=== PATIENT | male | born 1960 | race Caucasian/White ===

== ENCOUNTER 2020-12-15 00:13 | Inpatient (IN) | payer BC ==
[~2020-12-15] VITALS: Ht 172.7 cm; Wt 78.9 kg
[2020-12-15] MEDS ORDERED: SODIUM CHLORIDE 0.9% 1,000 ML IV ONE (00:45)
[2020-12-15] MEDS ORDERED: LORAZEPAM 2MG/ML CPJ IV ONE ×2 (00:45→02:45)
[2020-12-15 00:55] LABS: HEMATOCRIT. 39.2 % (42.0-52.0); HEMOGLOBIN. 13.6 g/dL (14.0-18.0); MEAN CORPUSCULAR HEMOGLOBIN 35.9 pg (28.0-32.0); MEAN CORPUSCULAR VOLUME 103.2 fL (80.0-94.0); PLATELET 88 x1000/uL (130-400); RED CELL DISTRIBUTION WIDTH 14.1 % (11.6-14.6)
[2020-12-15 01:01] LABS: CHLORIDE 98 mEq/L (98-107)
[2020-12-15 01:06] LABS: ETHANOL BLOOD < 10 mg/dL
[2020-12-15 02:45] LABS: *AMPHETAMINES SCREEN URINE NEGATIVE (NEGATIVE); *BARBITURATES SCREEN URINE NEGATIVE (NEGATIVE); *BENZODIAZEPINES SCREEN URINE NEGATIVE (NEGATIVE); METHADONE URINE SCREEN NEGATIVE (NEGATIVE); OPIATES URINE SCREEN NEGATIVE (NEGATIVE)
[2020-12-15] MEDS ORDERED: FOLIC ACID 1 MG, THIAMINE HCL 100 MG, MVI, ADULT NO.1 10 ML in DEXTROSE 5% WATER 1,000 ML IV ONE (02:45)
[2020-12-15 02:46] LABS: CANNABINOID URINE SCREEN NEGATIVE (NEGATIVE); PHENCYCLIDINE URINE SCREEN NEGATIVE (NEGATIVE)
[2020-12-15] MEDS ORDERED: HYDRALAZINE 20MG/ML VIAL IV ONE (05:00)
[2020-12-15 05:17] LABS: *COCAINE SCREEN URINE NEGATIVE (NEGATIVE)
[2020-12-15 05:38] LABS: PLATELET ESTIMATE DECREASED
[2020-12-15] MEDS ORDERED: ONDANSETRON HCL 4MG/2ML INJ IV PRN (07:15)
[2020-12-15] MEDS: SODIUM CHLORIDE 0.9% 1,000 ML IV SCH ×2 (07:40→23:42)
[2020-12-15] MEDS: FOLIC ACID 1MG TABLET PO SCH (08:39)
[2020-12-15] MEDS: THIAMINE HCL 100MG TABLET PO SCH (08:39)
[2020-12-15 10:00] VITALS: BP 162/90
[2020-12-15 12:00] VITALS: BP 155/102
[2020-12-15] MEDS: AMLODIPINE 10MG TABLET PO SCH (13:45)
[2020-12-15] MEDS ORDERED: CHLORDIAZEPOXIDE 25MG CAPSULE PO SCH (14:00)
[2020-12-15 16:00] VITALS: BP 166/83
[2020-12-15] MEDS: CLONIDINE 0.1MG TABLET PO PRN ×2 (17:09→22:13)
[2020-12-15 21:00] VITALS: BP 158/89
[2020-12-15] MEDS: ACETAMINOPHEN 650MG/20.3ML UDC PO PRN (22:13)
[2020-12-15] MEDS: CHLORDIAZEPOXIDE 5 MG CAPSULE PO SCH (22:18)
[2020-12-16] VITALS: BP 134/91
[2020-12-16 04:00] VITALS: BP 133/83
[2020-12-16] MEDS: CHLORDIAZEPOXIDE 5 MG CAPSULE PO SCH ×2 (05:20→12:23)
[2020-12-16 06:20] LABS: BASOPHILS % 0.3 % (0.0-2.0); EOSINOPHILS % 1.2 % (0.0-5.0); HEMATOCRIT. 37.6 % (42.0-52.0); HEMOGLOBIN. 13.1 g/dL (14.0-18.0); LYMPHOCYTES % 26.8 % (20.0-50.0); MEAN CORPUSCULAR HEMOGLOBIN 36.4 pg (28.0-32.0); MEAN CORPUSCULAR VOLUME 104.8 fL (80.0-94.0); MEAN PLATELET VOLUME 8.5 fl (7.4-10.4); MONOCYTES % 14.3 % (2.0-8.0); NEUTROPHILS % 57.4 % (40.0-76.0); PLATELET 78 x1000/uL (130-400); RED BLOOD CELL COUNT 3.59 mill/uL (4.7-6.1); RED CELL DISTRIBUTION WIDTH 14.3 % (11.6-14.6)
[2020-12-16 06:52] LABS: CHLORIDE 100 mEq/L (98-107)
[2020-12-16 07:05] LABS: LDL CHOLESTEROL 89 mg/dL (5-100)
[2020-12-16 07:08] LABS: HDL CHOLESTEROL 54 mg/dL (40-59)
[2020-12-16] MEDS ORDERED: NICOTINE 7MG PATCH TD SCH (09:00)
[2020-12-16 09:13] VITALS: BP 137/85
[2020-12-16] MEDS: AMLODIPINE 10MG TABLET PO SCH (09:23)
[2020-12-16] MEDS: THIAMINE HCL 100MG TABLET PO SCH (09:23)
[2020-12-16] MEDS: FOLIC ACID 1MG TABLET PO SCH (09:23)
[2020-12-16 12:00] VITALS: BP 125/72
[2020-12-16] MEDS: ACETAMINOPHEN 650MG/20.3ML UDC PO PRN (12:23)
[2020-12-16] MEDS ORDERED: POTASSIUM CHLORIDE 20MEQ TABLET SR PO NR (12:45)
[2020-12-16 13:47] VITALS: BP 125/71
== END 2020-12-16 14:40 | disposition home or self-care (01) | DRG 433 ==
LOC: ER 00:13 → 6EST 05:07 → EDBEDREQSVC 07:27 → ENRESERV 08:45 → 8WST 21:05
PROVIDERS: ADMIT Family Medicine; ATTEND Family Medicine
DX: K70.10 Alcoholic hepatitis without ascites (principal); F10.939 Alcohol use, unspecified with withdrawal, unspecified; I10 Essential (primary) hypertension; Y90.0 Blood alcohol level of less than 20 mg/100 ml; R56.9 Unspecified convulsions; R55 Syncope and collapse; Z91.14 Patient's other noncompliance with medication regimen
CPT/HCPCS: 36415; 71045; 73070; 80053; 80061; 80305; 80320; 84484; 85025; 93005; 93306; 97162; 99291; J0360; J2060; J3411; J3490; J7030; J7070; G0480